=== PATIENT | male | born 1975 | race Caucasian/White ===

== ENCOUNTER 2017-10-10 13:44 | Emergency (ER) | payer BC ==
[~2017-10-10] VITALS: Ht 182.9 cm; Wt 91.8 kg
[~2017-10-10 13:44] MED LIST: AMLODIPINE BESYL5 MG PO; ASPIRIN325 MG PO; BUPROPION XL150 MG PO; INDOCIN50 MG PO; LOSARTAN-HCTZ1 EACH PO; PAROXETINE HCL20 MG PO; PAXIL40 MG PO; PREDNISONE50 MG PO; XANAX0.25 MG PO; ZOLOFT100 MG PO
[2017-10-10 15:24] LABS: EOSINOPHIL (%) 0.5 % (0-5); EOSINOPHIL COUNT 0.1 K/uL (0-0.3); HEMATOCRIT 44.7 % (38.0-50.0); IMMATURE GRANULOCYTE (%) 0.5 % (0.0-0.7); IMMATURE GRANULOCYTE COUNT 0.1 K/uL; INSTRUMENT ABS NEUTROPHIL CT 13.4 K/uL; LYMPHOCYTE COUNT 1.1 K/uL (1.0-2.8); MCH 29.2 PG (29.0-34.0); MCHC 33.8 G/DL (30.0-36.0); MCV 86.5 FL (86-99); MEAN PLAT.VOLUME 10.1 uM^3 (9.0-12.4); MONOCYTE (%) 6.9 % (3-12); MONOCYTE COUNT 1.1 K/uL (0-0.8); NEUTROPHIL COUNT 13.4 K/uL (1.8-6.4); PLATELET COUNT 225 K/uL (156-360); RBC DIS.WIDTH-CV 12.7 % (11.8-14.6); RED BLOOD COUNT 5.17 M/uL (4.00-5.50); WHITE BLOOD COUNT 15.7 K/uL (4.1-10.2)
[2017-10-10 15:30] LABS: INTER. NORMALIZED RATIO 1.1; PROTHROMBIN TIME 12.2 SEC (10.2-12.9)
[2017-10-10 15:31] LABS: CHLORIDE 101 mEq/L (99-109); POTASSIUM 3.3 mEq/L (3.7-5.4); SODIUM 137 mEq/L (136-147)
[2017-10-10 15:33] LABS: GLUCOSE 128 mg/dL (70-99)
[2017-10-10 15:35] LABS: ANION GAP 11 MEQ/L (2-14)
[2017-10-10 15:37] LABS: GFR ESTIMATE (CALCULATED) > 59 mL/min/
[2017-10-10 15:38] LABS: UREA NITROGEN (BUN) 18 mg/dL (9-23)
[2017-10-10] MEDS ORDERED: PERCOCET 5/31 TABLET PO (17:00)
[2017-10-10 18:30] VITALS: BP 139/84
== END 2017-10-10 18:30 | disposition home or self-care (01) ==
LOC: EME 13:44
PROVIDERS: Physician Assistant
DX: L03.113 Cellulitis of right upper limb (principal); I10 Essential (primary) hypertension; F32.9 Major depressive disorder, single episode, unspecified; A69.20 Lyme disease, unspecified; F17.200 Nicotine dependence, unspecified, uncomplicated; Z88.8 Allergy status to other drugs, medicaments and biological substances
CPT/HCPCS: 73090; 80048; 83605; 85025; 85610; 85730; 87040; 87801; 93971; 99281; 99285; J0696; J2270; J2405; J3010; J7050

== ENCOUNTER 2017-10-14 18:33 | Emergency (ER) | payer BC ==
[~2017-10-14 18:33] MED LIST changes: +PERCOCET 5/31 TABLET PO
== END 2017-10-14 18:45 | disposition left against medical advice (07) ==
LOC: EME 18:33
DX: B95.8 Unspecified staphylococcus as the cause of diseases classified elsewhere (principal); A49.1 Streptococcal infection, unspecified site; Z53.21 Procedure and treatment not carried out due to patient leaving prior to being seen by health care provider